=== PATIENT | female | born 1970 | race Caucasian/White ===

== ENCOUNTER 2018-08-01 09:42 | Emergency (ER) | payer OTHER ==
[2018-08-01 10:21] VITALS: BP 125/86; PULSE 68; TEMP 98.5; BMI 76.6
--- NOTE | 2018-08-01 10:49 | PDOC ---
History of Present Illness - General Chief Complaint: Injury Stated Complaint: INJURY TO FINGER Time Seen by Provider: 08/01/18 10:27 History Source: Patient Exam Limitations: No Limitations - History of Present Illness Initial Comments: 08/01/18 10:37 48 yr female one month pain to the right index finger Occurred: reports: other (one month ) Past History - Past Medical History Allergies/Adverse Reactions: Allergies Allergy/AdvReac Type Severity Reaction Status Date / Time tramadol Allergy Intermediate Hives Verified 08/01/18 10:05 Home Medications: Ambulatory Orders NK [No Known Home Medication] 08/01/18 COPD: No Disorders: Yes (CYST) Thyroid Disease: No - Surgical History Abdominal Surgery: Yes (TUMMY TUCK) Appendectomy: Yes - Suicide/Smoking/Psychosocial Hx Smoking History: Never smoked Have you smoked in the past 12 months: No Hx Alcohol Use: No Drug/Substance Use Hx: No Substance Use Type: None Hx Substance Use Treatment: No Review of Systems - Review of Systems Able to Perform ROS?: Yes Is the patient limited Pashto proficient: No Constitutional: No: Symptoms Reported HEENTM: No: Symptoms Reported Respiratory: No: Symptoms reported Cardiac (ROS): No: Symptoms Reported ABD/GI: No: Symptoms Reported : No: Symptoms Reported Musculoskeletal: No: Symptoms Reported Integumentary: Yes: Symptoms Reported *Physical Exam - Vital Signs Last Vital Signs Temp Pulse Resp BP Pulse Ox 98.5 F 68 16 125/86 99 08/01/18 10:05 08/01/18 10:05 08/01/18 10:05 08/01/18 10:05 08/01/18 10:05 - Physical Exam General Appearance: Yes: Nourished HEENT: positive: EOMI, AMAN, Normal ENT Inspection Neck: positive: Supple. negative: Tender Respiratory/Chest: positive: Lungs Clear, Normal Breath Sounds. negative: Chest Tender Cardiovascular: positive: Regular Rhythm, Regular Rate Gastrointestinal/Abdominal: positive: Normal Bowel Sounds, Soft Musculoskeletal: positive: Normal Inspection Extremity: positive: Normal Capillary Refill, Normal Inspection, Normal Range of Motion, Tender (index finger ttp at the pad of the digit no deformity , palpable ball under the skin ) Integumentary: positive: Normal Color, Dry, Warm Neurologic: positive: registered nurse maternity II-XII NML intact, Fully Oriented, Alert, Normal Mood/ Affect, Normal Response, Motor Strength /5 ED Treatment Course - RADIOLOGY Radiology Studies Ordered: Category Date Time Status FINGER(S) RIGHT [RAD] Stat Radiology 08/01/18 10:36 Ordered Medical Decision Making - Medical Decision Making 08/01/18 10:37 cc: index finger with pain to the tip for one month. will get xray r/o fx r/o fb pt denies injury refer to hand surgeon pt has FROM of the digit with a tender pad of the finger, color is pink warm cap refill 2 seconds xray is negative, will refer to hand . 08/01/18 12:01 *DC/Admit/Observation/Transfer Diagnosis at time of Disposition: Injury of tip of finger Qualifiers: Encounter type: initial encounter Laterality: right Qualified Code(s): S69.91XA - Unspecified injury of right wrist, hand and finger(s), initial encounter - Discharge Dispostion Disposition: HOME Condition at time of disposition: Fair - Referrals Referrals: Lenny Lopez MD [Staff Physician] - - Patient Instructions Additional Instructions: follow with the hand surgeon for follow up if symptoms continue or worsen please follow with your primary care doctor for further evaluation as needed siga con el cirujano de la mano para realizar un seguimiento si los sntomas continan o empeoran siga con guzman mdico de atencin primaria para michelle evaluacin adicional segn sea necesario - Post Discharge Activity
== END 2018-08-01 12:02 | disposition home or self-care (01) ==
LOC: JERFT 09:42
DX: M79.644 Pain in right finger(s) (principal)
CPT/HCPCS: 73140-TC-RT-FY; 99281-25